=== PATIENT | male | born 2005 | race Caucasian/White ===

== ENCOUNTER 2024-03-09 16:36 | Emergency (ER) | payer SELFPAY ==
[~2024-03-09] VITALS: Ht 154.9 cm; Wt 59.0 kg
[2024-03-09 16:58] VITALS: BP 108/60; PULSE 75; RESP 18; TEMP 98.3; O2SAT 98
[2024-03-09] MEDS: BACITRACIN OINT 500 UNITS/GM PKT TP ONE (17:15)
[2024-03-09 18:35] VITALS: BP 135/68; PULSE 70; RESP 18; TEMP 98.3; O2SAT 99
== END 2024-03-09 18:36 | disposition home or self-care (01) ==
LOC: MED 16:36
DX: S61.512A Laceration without foreign body of left wrist, initial encounter (principal); S61.511A Laceration without foreign body of right wrist, initial encounter; S61.432A Puncture wound without foreign body of left hand, initial encounter; W01.0XXA Fall on same level from slipping, tripping and stumbling without subsequent striking against object, initial encounter; Y92.009 Unspecified place in unspecified non-institutional (private) residence as the place of occurrence of the external cause; Y93.89 Activity, other specified; Y99.8 Other external cause status
CPT/HCPCS: 73110; 73130; 90471; 90715; 99284